=== PATIENT | male | born 1980 | race Caucasian/White ===

== ENCOUNTER 2016-12-26 21:12 | Inpatient (IN) | payer OTHER, MEDICAID ==
[~2016-12-26] VITALS: Ht 167.6 cm; Wt 61.3 kg
[~2016-12-26 21:12] MED LIST: CEPHALEXIN500 M1 PO; MULTIPLE VITAMI1 CAP PO; PERCOCET 5/321 UDTAB PO; TOPROL XL100 MG PO
[2016-12-26 21:29] LABS: BASO # 0.1 (0.0-0.2); EOS # 0.2 (0.0-0.7); EOS % 2.4 % (0-4.0); GRAN # 3.7 (1.4-6.5); GRAN % 43.9 % (42.2-75.2); HEMOGLOBIN 14.4 g/dl (13.5-18.0); LYMPH # 3.8 (1.2-3.4); LYMPH % 45.1 % (20.0-51.0); MEAN CELL VOLUME 87 fl (80.0-100.0); MEAN CORPUSCULAR HEMOGLOBIN 31 pg (27.0-31.0); MEAN CORPUSCULAR HGB CONC 36 g/dl (33.0-37.0); MEAN PLATELET VOLUME 10.7 fl (7.4-10.4); MONO # 0.6 (0.1-0.6); MONO % 7.5 % (1.7-9.3); PLATELET COUNT 249 K/mm3 (130-400); RED BLOOD COUNT 4.59 M/mm3 (4.20-5.60); REDCELL DISTRIBUTION WIDTH-CV 11.8 % (11.5-14.5); WHITE BLOOD COUNT 8.4 K/mm3 (4.8-10.8)
[2016-12-26 21:44] LABS: CALCIUM 9.9 mg/dL (8.4-10.2); CREATININE, serum 0.85 mg/dL (0.66-1.25); POTASSIUM 3.7 mmol/L (3.4-5.0)
[2016-12-27] VITALS (11 sets, daily range): BP systolic 109–150; BP diastolic 37–102; PULSE 66–83; TEMP 97.3–98.9
[2016-12-27] MEDS ORDERED: MULTI VITAMINS1 TAB PO (10:58)
[2016-12-28] VITALS (14 sets, daily range): BP systolic 123–142; BP diastolic 76–98; PULSE 74–118; TEMP 97.7–97.9
[2016-12-29 02:16] VITALS: BP 125/84; PULSE 86; TEMP 98.5
[2016-12-29 05:21] VITALS: BP 116/88; PULSE 78; TEMP 98.5
[2016-12-29] MEDS ORDERED: PERCOCET 325 MG1 TA3 PO (07:18)
[2016-12-29] MEDS ORDERED: ASPI325T6 PO (07:19)
[2016-12-29] MEDS ORDERED: COLACE 100100 MG/CAP PO (07:20)
[2016-12-29 09:27] VITALS: BP 129/82; PULSE 77; TEMP 97.2
[2016-12-29 12:58] VITALS: BP 138/84; PULSE 88; TEMP 98.6
== END 2016-12-29 15:55 | disposition home or self-care (01) | DRG 494 ==
LOC: COL.ER 21:12 → SURG 22:52 → MEDICAL 12-27 07:57 → SURG 12-27 07:57
PROVIDERS: Emergency Medicine
PROC: 0QSH04Z Reposition Left Tibia with Internal Fixation Device, Open Approach (ICD-10-PCS; principal; 2016-12-26)
DX: S82.252A Displaced comminuted fracture of shaft of left tibia, initial encounter for closed fracture (principal); F17.210 Nicotine dependence, cigarettes, uncomplicated; V47 Car occupant injured in collision with fixed or stationary object
CPT/HCPCS: C1713; J0360; J0690; J1100; J1170; J1885; J2405; J2704; J3010; J7030; J7120; L1830; L2114

== ENCOUNTER → 2017-03-11 | Emergency (ER) | payer MEDICAID ==
[~2017-03-11] VITALS: Ht 175.3 cm; Wt 63.6 kg
[~2017-03-11] MED LIST changes: +ASPI325T6 PO; +COLACE 100100 MG/CAP PO; +MULTI VITAMINS1 TAB PO; +PERCOCET 325 MG1 TA3 PO
[2017-03-11 20:01] VITALS: BP 148/79; PULSE 90; TEMP 98.8
== END ==
LOC: COL.ER 19:33
DX: Z53.21 Procedure and treatment not carried out due to patient leaving prior to being seen by health care provider (principal)

== ENCOUNTER 2018-10-06 15:30 | Outpatient (RCR) | payer MEDICAID | END 2018-10-22 | disposition home or self-care (01) | LOC: WSOT | DX: R20.2 Paresthesia of skin (principal); M62.81 Muscle weakness (generalized); M21.331 Wrist drop, right wrist; G56.31 Lesion of radial nerve, right upper limb; F17.210 Nicotine dependence, cigarettes, uncomplicated; Z79.891 Long term (current) use of opiate analgesic ==

== ENCOUNTER 2020-08-07 15:20 | Inpatient (IN) | payer MEDICAID ==
[~2020-08-07] VITALS: Ht 170.2 cm; Wt 62.5 kg
[2020-08-07 16:02] LABS: BASO # 0.1 (0.0-0.2); BASO % 0.9 % (0.0-2.0); EOS # 0.1 (0.0-0.7); EOS % 2.2 % (0-4.0); GRAN # 3.8 (1.4-6.5); GRAN % 64.8 % (42.2-75.2); HEMATOCRIT 45.5 % (42.0-52.0); HEMOGLOBIN 16.2 g/dl (13.5-18.0); LYMPH # 0.9 (1.2-3.4); LYMPH % 15.9 % (20.0-51.0); MEAN CELL VOLUME 89 fl (80.0-100.0); MEAN CORPUSCULAR HEMOGLOBIN 32 pg (27.0-31.0); MEAN CORPUSCULAR HGB CONC 36 g/dl (33.0-37.0); MONO # 0.9 (0.1-0.6); MONO % 15.9 % (1.7-9.3); PLATELET COUNT 108 K/mm3 (130-400); REDCELL DISTRIBUTION WIDTH-CV 12.3 % (11.5-14.5)
[2020-08-07 16:44] LABS: ALANINE AMINOTRANSFERASE 346 U/L (4-49); ALBUMIN 5.6 gm/dL (3.5-5.0); ALKALINE PHOSPHATASE 112 U/L (50-136); ANION GAP 37 mmol/L (7-16); AST,SGOT > 750 U/L (15-37); BILIRUBIN,TOTAL 2.4 mg/dL (0.0-1.0); BLOOD UREA NITROGEN 13 mg/dL (9-20); CALCIUM 10.3 mg/dL (8.4-10.2); CREATININE, serum 0.87 (0.66-1.25); GLUCOSE 108 mg/dL (74-106); LIPASE 136 U/L (23-300); MAGNESIUM 1.4 mg/dL (1.6-2.3); PHOSPHOROUS 3.9 mg/dL (2.5-4.5); POTASSIUM 3.5 mmol/L (3.4-5.0); SODIUM 131 mmol/L (137-145); TOTAL PROTEIN 9.7 gm/dL (6.4-8.2)
[2020-08-07 16:49] LABS: ALCOHOL(ethanol),MEDICAL < 10 mg/dL; CARBON DIOXIDE 13 mmol/L (22-30); CHLORIDE 81 mmol/L (98-107)
[2020-08-07 17:01] LABS: TROPONIN-I 0.036 ng/mL (0.000-0.035)
[2020-08-07 17:29] LABS: ARTERIAL BLD GAS O2 SATURATION 96.4 % (92-100); ARTERIAL BLD GAS TCO2 CT 16.8; ARTERIAL BLOOD GAS BASE EXCESS -6.7 (-2-2); ARTERIAL BLOOD GAS PCO2 25.6 mmHg (35-45); ARTERIAL BLOOD GAS PO2 89.6 mmHg (80-100); ARTERIAL BLOOD GAS pH 7.41 (7.35-7.45)
[2020-08-07 17:30] LABS: ACETAMINOPHEN < 10 ug/mL (10-30); SALICYLATE < 1.0 mg/dL
[2020-08-07] MEDS ORDERED: DESYREL 50MG50 MG PO (19:18)
[2020-08-07] MEDS ORDERED: HCTZ 25MG TAB25 MG PO (19:18)
[2020-08-07 20:14] LABS: PROTHROMBIN TIME 10.8 SECONDS (9.7-12.8)
[2020-08-07 20:20] LABS: COLLECTION METHOD CLEAN CATCH
[2020-08-07 20:43] LABS: TRICYCLIC ANTIDEPRESS URINE NEGATIVE
[2020-08-07 20:50] LABS: MUCOUS Present /lpf; PH 6 (5-8); SQUAMOUS EPITHELIAL 0-2 /hpf; URINE APPEARANCE Clear; URINE BACTERIA None Seen /hpf; URINE BILIRUBIN Negative (NEGATIVE); URINE BLOOD 1+ (NEGATIVE); URINE COLOR Yellow; URINE GLUCOSE Negative (NEGATIVE); URINE KETONE 2+ (NEGATIVE); URINE LEUKOCYTE ESTERASE Negative (NEGATIVE); URINE NITRATE Negative (NEGATIVE); URINE PROTEIN(semi-quant) 2+ (NEGATIVE); URINE RBC 0-2 /hpf; URINE UROBILINOGEN Negative (NEGATIVE)
[2020-08-07 20:57] VITALS: BP 130/90; PULSE 89; TEMP 98.8
[2020-08-07 21:16] VITALS: BP 130/90; PULSE 85; TEMP 98.8
[2020-08-07 21:57] LABS: CALCIUM 8.7 mg/dL (8.4-10.2); CREATININE, serum 0.77 (0.66-1.25)
[2020-08-08] VITALS (579 sets, daily range): BP systolic 114–153; BP diastolic 69–98; PULSE 67–95; TEMP 97.9–98.9; O2SAT 74–100
[2020-08-08 05:38] LABS: ALBUMIN 3.9 gm/dL (3.5-5.0); BILIRUBIN,TOTAL 1.5 mg/dL (0.0-1.0); CALCIUM 8.5 mg/dL (8.4-10.2); CREATININE, serum 0.61 (0.66-1.25); MAGNESIUM 1.9 mg/dL (1.6-2.3); POTASSIUM 4.1 mmol/L (3.4-5.0); TOTAL PROTEIN 6.6 gm/dL (6.4-8.2)
[2020-08-08 06:35] LABS: BASO # 0.1 (0.0-0.2); BASO % 0.8 % (0.0-2.0); EOS # 0.1 (0.0-0.7); EOS % 2.2 % (0-4.0); GRAN % 50.1 % (42.2-75.2); LYMPH # 1.9 (1.2-3.4); LYMPH % 31.6 % (20.0-51.0); MEAN CELL VOLUME 91 fl (80.0-100.0); MEAN CORPUSCULAR HGB CONC 35 g/dl (33.0-37.0); MEAN PLATELET VOLUME 11.6 fl (7.4-10.4); MONO # 0.9 (0.1-0.6); RED BLOOD COUNT 3.93 M/mm3 (4.20-5.60); REDCELL DISTRIBUTION WIDTH-CV 12.5 % (11.5-14.5)
[2020-08-08 07:25] LABS: HEMATOCRIT 35.9 % (42.0-52.0); HEMOGLOBIN 12.6 g/dl (13.5-18.0); MEAN CORPUSCULAR HEMOGLOBIN 32 pg (27.0-31.0); PLATELET COUNT 63 K/mm3 (130-400)
--- NOTE | 2020-08-08 14:48 | NUR ---
Report called into [facility] Cede[facility] on surgical.
--- NOTE | 2020-08-08 14:52 | NUR ---
Work Car Operator met with the patient to complete initial intake. The patient lives alone in [place]. The patient denies DME use and is independent with ADLs. The patient gave this SW a name of the PCP but this SW could not locate them. The patient receives medications at a pharmacy in [place]. The patient does not have advanced directives in the EMR but states they are complete and designate his mother, Cristina # [phone]. The patient plans to return home at discharge wit Cristina providing transportation. DAVE contacted Cristina to to inquire about the patient's PCP. She states it is either SHAN Chawla or Azalea Gutierrez PA-C. DAVE contacted [place]. The patient's PCP is SHAN Chawla. The last time the patient had an appointment was July 18. There are no additional needs at this time.
--- NOTE | 2020-08-08 14:57 | NUR ---
Pt transported to room 348 via wheelchair without incident. KATTY Cedeño assumed care.
--- NOTE | 2020-08-08 16:29 | NUR ---
PT TRANSFERED FROM ICU WITH REPORT @1500. PT A/O X3 CIWA 1, PT RESTING IN BED.
--- NOTE | 2020-08-08 18:55 | NUR ---
Report received from KATTY Cedeño. Pt resting in bed, call light in reach. Denies needs at this time.
--- NOTE | 2020-08-08 21:08 | NUR ---
Assessment complete. Pt resting in bed. Denies pain at this time but does report increasing anxiety. 1 mg PO Ativan administered per orders. Pt tolerating PO intake. LR running at 100 ml/hr to right AC. Pt denies other needs at this time. Will continue to monitor.
[2020-08-09] VITALS (9 sets, daily range): BP systolic 108–148; BP diastolic 84–109; PULSE 66–88; TEMP 98–98.6
--- NOTE | 2020-08-09 07:28 | NUR ---
Detox scores remain low at 1 to 2. Pt denies pain or other concerns. Tolerating PO intake well.
[2020-08-09 08:53] LABS: BASO # 0.1 (0.0-0.2); EOS # 0.2 (0.0-0.7); EOS % 2.9 % (0-4.0); GRAN # 2.7 (1.4-6.5); GRAN % 45.9 % (42.2-75.2); HEMATOCRIT 39.2 % (42.0-52.0); HEMOGLOBIN 13.2 g/dl (13.5-18.0); LYMPH # 2.2 (1.2-3.4); LYMPH % 37.3 % (20.0-51.0); MEAN CELL VOLUME 93 fl (80.0-100.0); MEAN CORPUSCULAR HEMOGLOBIN 31 pg (27.0-31.0); MEAN CORPUSCULAR HGB CONC 34 g/dl (33.0-37.0); MEAN PLATELET VOLUME 12.6 fl (7.4-10.4); MONO # 0.7 (0.1-0.6); MONO % 12.7 % (1.7-9.3); PLATELET COUNT 63 K/mm3 (130-400); REDCELL DISTRIBUTION WIDTH-CV 12.3 % (11.5-14.5)
[2020-08-09 09:10] LABS: ALBUMIN 3.9 gm/dL (3.5-5.0); BILIRUBIN,TOTAL 1.2 mg/dL (0.0-1.0); CALCIUM 8.8 mg/dL (8.4-10.2); CREATININE, serum 0.48 (0.66-1.25); POTASSIUM 3.4 mmol/L (3.4-5.0); TOTAL PROTEIN 6.9 gm/dL (6.4-8.2)
--- NOTE | 2020-08-09 09:10 | NUR ---
Animal Health Technician attended clinical rounds with the team. The patient is to advance to a solid diet this day.
--- NOTE | 2020-08-09 09:50 | NUR ---
PATIENT SHIFT ASSESSMENT COMPLETED AT THIS TIME. PATIENT DENIES ANY COMPLAINTS OF ABDOMINAL PAIN. PATIENT REPORTS THAT THE PAIN HAS RESOLVED. PATIENT STARTED ON POTASSIUM PROTOCOL. PATIENT DENIES ANY OTHER NEEDS AT THIS TIME.
--- NOTE | 2020-08-09 10:32 | NUR ---
Initial visit; Patient thanked Acquisitions Librarian for stopping and for keeping him in her prayers.
--- NOTE | 2020-08-09 18:36 | NUR ---
PATIENT CURRENTLY RESTING IN BED. PATIENT TOLERATED A MECHANICAL SOFT DIET FOR DINNER WITHOUT ANY COMPLAINTS OF N/V. PATIENT CONTINUES TO REMAIN PAIN FREE. WILL REPORT OFF TO ONCOMING NURSE.
--- NOTE | 2020-08-09 20:27 | NUR ---
pt requesting ativan to help him sleep as this was the medication that they have been giving him as he verbalized. pt on CIWA protocol but not scoring enough tp give ativan. REYNA Banerjee notified and ordered Melatonin.
[2020-08-10] VITALS (7 sets, daily range): BP systolic 125–141; BP diastolic 88–109; PULSE 64–88; TEMP 98.1–98.8
[2020-08-10 08:15] LABS: BASO # 0.1 (0.0-0.2); BASO % 1.2 % (0.0-2.0); EOS # 0.2 (0.0-0.7); EOS % 3.1 % (0-4.0); GRAN % 38.2 % (42.2-75.2); HEMATOCRIT 43.4 % (42.0-52.0); LYMPH # 2.3 (1.2-3.4); LYMPH % 44.1 % (20.0-51.0); MEAN CELL VOLUME 91 fl (80.0-100.0); MEAN CORPUSCULAR HEMOGLOBIN 32 pg (27.0-31.0); MEAN CORPUSCULAR HGB CONC 35 g/dl (33.0-37.0); MEAN PLATELET VOLUME 12.2 fl (7.4-10.4); MONO # 0.7 (0.1-0.6); MONO % 13.2 % (1.7-9.3); PLATELET COUNT 97 K/mm3 (130-400); RED BLOOD COUNT 4.76 M/mm3 (4.20-5.60)
[2020-08-10 08:23] LABS: ALBUMIN 4.5 gm/dL (3.5-5.0); CALCIUM 9.9 mg/dL (8.4-10.2); CREATININE, serum 0.62 (0.66-1.25)
--- NOTE | 2020-08-10 08:30 | NUR ---
Patient alert and oriented, answers questions appropriately. See assessment. Abdomen soft, non tender, non distended. Bowel sounds active x4 quads. +Flatus. No c/o NVD. No other c/o at this time.
[2020-08-10] MEDS ORDERED: THIAMINE 1100 MG/TAB PO (09:06)
[2020-08-10] MEDS ORDERED: FOLIC ACID 11 MG/TA1 PO (09:06)
--- NOTE | 2020-08-10 15:45 | NUR ---
Discharge instructions reviewed with patient, verbalized understanding. Discharged via wheelchair to auto/home with spouse at 1435.
== END 2020-08-10 14:35 | disposition home or self-care (01) | DRG 433 ==
LOC: COL.ER 15:20 → ICU 18:29 → SURG 08-08 15:00
PROVIDERS: Emergency Medicine; Nurse Practitioner Family; Physician Assistant; ADMIT Family Medicine
DX: K70.10 Alcoholic hepatitis without ascites (principal); E87.2 Acidosis; E87.1 Hypo-osmolality and hyponatremia; E86.0 Dehydration; E80.6 Other disorders of bilirubin metabolism; E87.6 Hypokalemia; E83.42 Hypomagnesemia; I10 Essential (primary) hypertension; F19.10 Other psychoactive substance abuse, uncomplicated; J44.9 Chronic obstructive pulmonary disease, unspecified; D69.6 Thrombocytopenia, unspecified; M47.892 Other spondylosis, cervical region; R79.89 Other specified abnormal findings of blood chemistry; E87.8 Other disorders of electrolyte and fluid balance, not elsewhere classified; Z20.828 Contact with and (suspected) exposure to other viral communicable diseases
CPT/HCPCS: 99223-AI; 99232-AI; 99233-AI; 99239; C9113; J2060; J2405; J3010; J3411; J3475; J3480; J7030; J7120; Q9967

== ENCOUNTER 2022-07-27 15:51 | Emergency (ER) | payer MEDICAID ==
[~2022-07-27] VITALS: Ht 170.2 cm; Wt 60.0 kg
[~2022-07-27 15:51] MED LIST changes: +DESYREL 50MG50 MG PO; +FOLIC ACID 11 MG/TA1 PO; +HCTZ 25MG TAB25 MG PO; +THIAMINE 1100 MG/TAB PO
[2022-07-27 18:02] VITALS: BP 132/85; PULSE 79; TEMP 98
[2022-07-27] MEDS ORDERED: FLEXERIL 1010 MG/TAB PO (18:02)
== END 2022-07-27 18:02 | disposition home or self-care (01) ==
LOC: COL.ER 15:51
DX: S40.011A Contusion of right shoulder, initial encounter (principal); F17.210 Nicotine dependence, cigarettes, uncomplicated; Z28.310 Unvaccinated for COVID-19; W20.8XXA Other cause of strike by thrown, projected or falling object, initial encounter; Y92.59 Other trade areas as the place of occurrence of the external cause
CPT/HCPCS: J1885